=== PATIENT | male | born 1960 | race Caucasian/White ===

== ENCOUNTER 2018-10-30 11:50 | Emergency (ER) | payer OTHER ==
[2018-10-30] MEDS ORDERED: Acetaminophen 500 MG TAB ONE (13:31)
--- NOTE | 2018-10-30 14:36 | RAD ---
2 VIEWS LEFT HIP: Date: 10/30/18 HISTORY: Fall. Pain. COMPARISON: None. FINDINGS: Hip joint space is preserved. Contour of the femoral head is maintained. IMPRESSION: Unremarkable left hip 2 views. POS: [facility]
--- NOTE | 2018-10-30 14:44 | RAD ---
3 VIEWS LUMBAR SPINE: Date: 10/30/18 HISTORY: Fall yesterday. Pain. COMPARISON: None. FINDINGS: Six lumbar-type vertebral bodies. Vertebral body height is maintained. No evidence of fracture. Disc space heights preserved. Minimal osteophyte formation at L3-L4. Mild straightening of normal lumbar l ordosis is presumed to be due to patient positioning or muscle spasm. IMPRESSION: No evidence of fracture. 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 POS: [facility]
== END 2018-10-30 14:20 | disposition home or self-care (01) ==
LOC: ERS 11:50
DX: M79.605 Pain in left leg (principal); M25.552 Pain in left hip; Z71.6 Tobacco abuse counseling; W01.0XXA Fall on same level from slipping, tripping and stumbling without subsequent striking against object, initial encounter
CPT/HCPCS: 72100; 99406

== ENCOUNTER 2019-03-17 07:51 | Outpatient (CLI) | payer OTHER ==
--- NOTE | 2019-03-17 09:34 | MRI ---
MRI LEFT HIP WITHOUT IV CONTRAST: HISTORY: M54.30, left sciatic pain. Left leg pain. Left hip pain, radiating down the left ankle. FINDINGS: No evidence for avascular necrosis, fracture, or acute stress injury. There is some joint space narr owing of both hip joints, evidence for some generalized arthrosis. Associated intraosseous degenerat adelina subchondral cyst of the anterior acetabulum. Heterogeneous abnormal linear high signal associate d with the common hamstring tendon insertion region, evidence for partial-thickness interstitial tear ing, with some francisco-tenderness fat stranding, as well as a small focal area of adjacent marrow edema within the ischial tuberosity. The visualized left hip labrum is somewhat indistinct, evidence for s ome degenerative fraying, anteriorly and superiorly. Gluteal myotendinous and tendon insertion regio ns appear unremarkable. IMPRESSION: 1. Some bilateral hip joint space narrowing, evidence for some arthrosis, with some cartilage loss, including some minimal subchondral cystic focus involving the anterior, superior left acetabulum. 2. Fairly extensive abnormal linear high signal involving the left common hamstring tendon insertion region, evidence for partial-thickness interstitial tearing. 3. Somewhat blunted appearing anterior hip labrum. POS: [facility]
== END 2019-03-17 07:52 | disposition home or self-care (01) ==
LOC: BICMRI 07:51
PROVIDERS: ATTEND Family Medicine
DX: M54.32 Sciatica, left side (principal); M16.0 Bilateral primary osteoarthritis of hip; S76.012A Strain of muscle, fascia and tendon of left hip, initial encounter; M25.851 Other specified joint disorders, right hip; M25.852 Other specified joint disorders, left hip